=== PATIENT | male | born 1955 | race African-American/Black ===

== ENCOUNTER 2019-09-27 12:46 | Emergency (ER) | payer MEDICAID ==
[~2019-09-27] VITALS: Ht 182.9 cm; Wt 66.0 kg
[2019-09-27 12:57] VITALS: BP 125/90
== END 2019-09-27 14:00 | disposition left against medical advice (07) ==
LOC: ER 13:03
DX: R05 Cough (principal)
CPT/HCPCS: 99281

== ENCOUNTER 2019-10-23 11:52 | Emergency (ER) | payer MEDICAID ==
[~2019-10-23] VITALS: Ht 175.3 cm; Wt 75.0 kg
[2019-10-23] MEDS ORDERED: KETOROLAC 30MG/ML VIAL IM ONE (13:45)
[2019-10-23] MEDS ORDERED: METOCLOPRAMIDE HCL 10MG TABLET PO ONE (13:45)
[2019-10-23 14:59] VITALS: BP 131/70
== END 2019-10-23 15:01 | disposition home or self-care (01) ==
LOC: ER 11:52
DX: R51 Headache (principal); R11.0 Nausea
CPT/HCPCS: 96372; 99283; J1885; J8597